=== PATIENT | female | born 1960 | race African-American/Black ===

== ENCOUNTER 2019-01-05 03:17 | Emergency (ER) | payer BC ==
[~2019-01-05] VITALS: Ht 162.6 cm; Wt 64.4 kg
[2019-01-05] MEDS ORDERED: LIDOCAINE HCL 1% 2 ML AMP INJ ONE (03:30)
[2019-01-05] MEDS ORDERED: TETANUS/DIPHTHERIA TOX ADULT 0.5 ML SYR IM ONE (03:30)
[2019-01-05 03:34] LABS: BASOPHILS % 0.3 % (0.0-1.0); EOSINOPHILS # (AUTO) 0.1 (0.0-0.4); EOSINOPHILS % 1.4 % (0.0-6.0); HEMATOCRIT 38.6 % (34.2-44.1); HEMOGLOBIN 12.4 g/dL (12.0-16.0); LYMPHOCYTES # (AUTO) 3.1 (1.0-3.2); LYMPHOCYTES % 47.9 % (18.0-39.1); MEAN CORPUSCULAR HEMOGLOBIN 28.4 pg (28-32); MEAN CORPUSCULAR HGB CONC 32.1 g/dL (31-35); MEAN CORPUSCULAR VOLUME 88.5 fL (81-99); MONOCYTES # (AUTO) 0.5 (0.2-0.8); MONOCYTES % 8.1 % (4.4-11.3); NEUTROPHILS # (AUTO) 2.8 (2.1-6.9); NEUTROPHILS % 42.1 % (38.7-80.0); PLATELET COUNT 203 x10e3/uL (140-360); RED BLOOD COUNT 4.36 x10e6/uL (3.6-5.1); RED CELL DISTRIBUTION WIDTH 12.1 % (11.7-14.4)
[2019-01-05 03:48] LABS: ALANINE AMINOTRANSFERASE 11 IU/L (0-55); ALBUMIN 3.8 g/dL (3.5-5.0); ALBUMIN/GLOBULIN RATIO 1.1 (0.8-2.0); ALKALINE PHOSPHATASE 96 IU/L (40-150); ANION GAP 14.5 mmol/L (8-16); BLOOD UREA NITROGEN 8 mg/dL (7-26); BUN/CREATININE RATIO 10 (6-25); CALCIUM 9.6 mg/dL (8.4-10.2); CARBON DIOXIDE 27 mmol/L (22-29); CHLORIDE 102 mmol/L (98-107); CREATININE, SERUM 0.77 mg/dL (0.57-1.11); EST GLOMERULAR FILTRATION RATE > 60 ML/MIN (60-); GLUCOSE 144 mg/dL (74-118); POTASSIUM 3.5 mmol/L (3.5-5.1); SODIUM 140 mmol/L (136-145)
[2019-01-05] MEDS ORDERED: LIDOCAINE HCL 1% LOCAL INJ 20 ML VIAL ONE (03:51)
[2019-01-05] MEDS ORDERED: LIDOCAINE HCL 1% LOCAL INJ 20 ML VIAL INJ ONE (04:00)
--- NOTE | 2019-01-05 04:02 | Diagnostic Imaging Report ---
EXAMINATION: Head CT without contrast. HISTORY:Status post fall. COMPARISON:None. TECHNIQUE: Multidetector axial images were obtained from the foramen magnum to the vertex without contrast. The images were reconstructed using brain and bone algorithms. Thin section brain images were reformatted into coronal and sagittal planes. Dose modulation, iterative reconstruction, and/or weight based adjustment of the mA/kV was utilized to reduce the radiation dose to as low as reasonably achievable. Intravenous contrast: None IMAGE QUALITY: Acceptable. FINDINGS: Skull/scalp: Mild left frontal scalp soft tissue edema/hematoma with minimal soft tissue emphysema and 3 mm x 4 mm full-thickness soft tissue defect. No radiopaque foreign body. No acute depressed or displaced calvarial fracture. Parenchyma: Nonspecific few, scattered supratentorial white matter hypodensity are likely related to small vessel ischemic changes. No acute hemorrhage, mass or acute major vascular territorial infarct. Arteries: No density suggestive of thrombosis. Dural sinuses: No abnormal density suggestive of thrombosis. Ventricles: No hydrocephalus or displacement. Extra-axial spaces: No abnormal density. Brain volume: Mild generalized cerebral volume loss. Craniocervical junction: No mass, Chiari malformation, or basilar invagination. Sella: Partial empty sella. Paranasal/mastoid sinuses: Imaged portions unremarkable. IMPRESSION: 1. Mild left frontal scalp soft tissue edema/hematoma and focal laceration. No acute calvarial fracture. 2. No acute posttraumatic intracranial abnormality. 3. Mild supratentorial white matter microvascular ischemic changes and mild generalized cerebral volume loss. Signed by: Dr. Isabel Villatoro M.D. on 01/05/2019 3:59 AM
--- NOTE | 2019-01-05 04:07 | Diagnostic Imaging Report ---
History: Status post fall. Comparison studies: None Technique: Axial images were obtained through the cervical region.. Coronal and sagittal images reconstructed from the axial data. Dose modulation, iterative reconstruction, and/or weight based adjustment of the mA/kV was utilized to reduce the radiation dose to as low as reasonably achievable. Intravenous contrast: None Findings: Fractures: None. Soft tissue injuries: None. Atlantoaxial articulation: Intact. Alignment: Normal lordosis. No scoliosis. Cervicomedullary junction: No abnormalities. The foramen magnum is patent. Soft tissues: No abnormalities. Vertebrae: No fractures, infection or neoplasm. Degenerative changes: C2-C3: Posterior disc osteophyte complex without significant canal stenosis. C3-C4: Mild degenerative disc disease. Posterior disc osteophyte complex results in mild canal stenosis. C4-C5: Posterior disc osteophyte complex results in mild canal stenosis. C5-C6: Mild degenerative disc disease. Posterior disc osteophyte complex effaces anterior thecal sac without significant canal stenosis.. IMPRESSION: 1. No acute cervical spine fracture or dislocation. 2. Ligament, spinal cord and or vascular abnormalities cannot be excluded on the basis of this examination. 3. Cervical spondylosis as detailed above. Signed by: Dr. Isabel Villatoro M.D. on 01/05/2019 4:04 AM
--- NOTE | 2019-01-05 04:18 | Diagnostic Imaging Report ---
[facility] - 1 Image HISTORY: Fall COMPARISON: None available. FINDINGS: Overlying artifacts. Bones: Some of the osseous structures are partially obscured by stool and overlying bowel gas. No acute displaced fracture. Joints: Mild degenerative changes of the hips. Soft tissues: The soft tissues appear unremarkable. IMPRESSION: No acute radiographic abnormality. Signed by: Dr. Cecil Rapp D.O., M.M.M. on 01/05/2019 4:15 AM
--- NOTE | 2019-01-05 04:20 | Diagnostic Imaging Report ---
A single frontal view of the chest. HISTORY: Fall, head injury COMPARISON: None available. DISCUSSION: Portable technique, limits sensitivity of the exam. Overlying monitoring leads Tubes/Lines: None Lungs and pleura: Low lung volumes result in bibasilar vascular crowding, accentuation of the pulmonary interstitial markings, central pulmonary vasculature, and the cardiac silhouette. Allowing for these limitations, the findings are as follows: No evidence of a consolidative pneumonia or pulmonary alveolar edema. No definite pleural effusion or pneumothorax is identified. Heart and mediastinum: The cardiomediastinal silhouette appears unremarkable. Bones and soft tissues: Appear unremarkable, given this limited exam. IMPRESSION: No acute radiographic abnormality. Signed by: Dr. Cecil Rapp D.O., M.M.M. on 01/05/2019 4:16 AM
[2019-01-05 05:26] LABS: BILIRUBIN,URINE NEGATIVE (NEGATIVE); CLARITY,URINE CLEAR (CLEAR); COLOR,URINE YELLOW (YELLOW); KETONES,URINE NEGATIVE (NEGATIVE); LEUKOCYTE ESTERASE ,URINE NEGATIVE (NEGATIVE); NITRITE,URINE NEGATIVE (NEGATIVE); PROTEIN,URINE DIPSTICK NEGATIVE (NEGATIVE); URINE UROBILINOGEN 0.2 mg/dL (0.2 - 1)
[2019-01-05 05:46] LABS: BACTERIA,URINE FEW /HPF; EPITHELIAL CELLS,URINE FEW /LPF; WBC,URINE (MAN) 0-5 /HPF (0-5)
[2019-01-05] MEDS ORDERED: NEOSTIGMINE 1 MG/ML 10ML VIAL ONE (06:11)
[2019-01-05] MEDS ORDERED: NEOMYCIN/POLYMYXIN/BACITRACIN 15 GM TUBE TOP ONE (06:15)
[2019-01-05 06:20] VITALS: BP 139/85
== END 2019-01-05 06:41 | disposition home or self-care (01) ==
LOC: ER 03:17
DX: S01.81XA Laceration without foreign body of other part of head, initial encounter (principal); R51 Headache; W10.8XXA Fall (on) (from) other stairs and steps, initial encounter; Y93.01 Activity, walking, marching and hiking; Y92.008 Other place in unspecified non-institutional (private) residence as the place of occurrence of the external cause; M47.892 Other spondylosis, cervical region; E11.9 Type 2 diabetes mellitus without complications
CPT/HCPCS: 12014; 36415; 70450; 71045; 72125; 72170; 80053; 81001; 82948; 85025; 90471; 90714; 99284; J2001; J2710

== ENCOUNTER 2019-08-27 21:30 | Emergency (ER) | payer BC ==
[~2019-08-27] VITALS: Ht 162.6 cm; Wt 64.4 kg
[2019-08-27] MEDS ORDERED: SODIUM CHLORIDE 0.9% 500ML 500 ML ONE ×2 (21:43→21:45)
[2019-08-27] MEDS ORDERED: SODIUM CHLORIDE 0.9% 1000ML 1,000 ML IV ONE (21:45)
[2019-08-27 21:56] LABS: BASOPHILS % 0.1 % (0.0-1.0); EOSINOPHILS % 0.4 % (0.0-6.0); HEMATOCRIT 43.8 % (34.2-44.1); LYMPHOCYTES % 14.5 % (18.0-39.1); MEAN CORPUSCULAR HEMOGLOBIN 29.6 pg (28-32); MEAN CORPUSCULAR HGB CONC 34.2 g/dL (31-35); MEAN CORPUSCULAR VOLUME 86.6 fL (81-99); MONOCYTES # (AUTO) 0.4 (0.2-0.8); MONOCYTES % 5.1 % (4.4-11.3); NEUTROPHILS # (AUTO) 5.6 (2.1-6.9); NEUTROPHILS % 79.3 % (38.7-80.0); PLATELET COUNT 298 x10e3/uL (140-360); RED BLOOD COUNT 5.06 x10e6/uL (3.6-5.1); RED CELL DISTRIBUTION WIDTH 12.1 % (11.7-14.4)
[2019-08-27 22:09] LABS: ALBUMIN 4.6 g/dL (3.5-5.0); ALBUMIN/GLOBULIN RATIO 1.2 (0.8-2.0); ANION GAP 32.5 mmol/L (8-16); CALCIUM 9.9 mg/dL (8.4-10.2); CREATININE, SERUM 1.46 mg/dL (0.57-1.11); POTASSIUM 4.5 mmol/L (3.5-5.1)
[2019-08-27 22:15] LABS: CREATINE KINASE MB 16.8 ng/mL (0-5.0)
--- NOTE | 2019-08-27 22:19 | Diagnostic Imaging Report ---
EXAMINATION: Head CT HISTORY: Altered mental status, weakness COMPARISON: Head CT 01/05/2019 TECHNIQUE: Helical axial images of the head were obtained. Reformatted coronal and sagittal images from the axial data. Dose modulation, iterative reconstruction, and/or weight based adjustment of the mA/kV was utilized to reduce the radiation dose to as low as reasonably achievable. Image quality: Motion/streaking artifact limits the evaluation of the skull base and posterior cranial fossa. FINDINGS: Parenchyma: 1. Persistent mild white matter chronic microvascular ischemic changes. Physiologic calcification of the globi pallidi. 2. No mass or hemorrhage. No CT evidence of acute territorial vascular insult. Extra-axial spaces:No abnormal density. No extra-axial fluid collections Brain volume: Normal for age. Ventricles: No hydrocephalus or displacement. Arteries: No density suggestive of thrombus. Dural sinuses: No abnormal density. Foramen magnum: No mass, Chiari malformation, or basilar invagination. Sella: Enlarged, partially empty, mostly CSF filled. Paranasal/mastoid sinuses: Imaged portions unremarkable. Skull/Scalp: No lytic or blastic lesions. No fractures. IMPRESSION: 1. No acute intracranial abnormalities. 2. Mild chronic microvascular ischemic changes, stable compared to head CT of 01/05/2019 Signed by: Dr. Yanni Mccarthy M.D. on 08/27/2019 10:16 PM
[2019-08-27] MEDS ORDERED: DEXTROSE 5%/0.45% SOD CHL 1,000 ML IV SCH (23:10)
[2019-08-27] MEDS ORDERED: INSULIN REGULAR, HUMAN 3ML VL 1 UNIT in SODIUM CHLORIDE 0.9% 100 ML IV SCH ×2 (23:15)
[2019-08-27] MEDS ORDERED: POTASSIUM CHLORIDE 20MEQ/100ML 200 ML IV PRN (23:15)
[2019-08-27] MEDS ORDERED: MAGNESIUM SULF 1GRAM/DEXTROSE 100 ML IV PRN (23:15)
[2019-08-27] MEDS ORDERED: SODIUM CHLORIDE 0.9% 100 ML ONE (23:22)
[2019-08-27] MEDS ORDERED: INSULIN REGULAR, HUMAN 100 UNIT/1 ML 3ML VIAL ONE (23:22)
[2019-08-27] MEDS: SODIUM CHLORIDE 0.9% 1000ML 1,000 ML IV SCH (23:32)
--- NOTE | 2019-08-27 23:52 | Diagnostic Imaging Report ---
EXAMINATION: CHEST SINGLE (PORTABLE) INDICATION: Altered mental status COMPARISON: Chest x-ray 01/05/2019 FINDINGS: TUBES and LINES: None. LUNGS: Normal lung volumes. Lungs are clear. There is perihilar interstitial opacities, consistent with interstitial edema. PLEURA: No pleural effusion or pneumothorax. HEART AND MEDIASTINUM: Cardiac size is mildly enlarged. BONES AND SOFT TISSUES: No acute osseous lesion. Soft tissues are unremarkable. UPPER ABDOMEN: No free air under the diaphragm. IMPRESSION: Borderline cardiomegaly and pulmonary vascular congestion. Signed by: Kenan Medina DO on 08/27/2019 11:50 PM
[2019-08-28] MEDS: SODIUM CHLORIDE 0.9% 1000ML 1,000 ML IV SCH (04:19)
[2019-08-28 04:39] LABS: ANION GAP 11.4 mmol/L (8-16); BLOOD UREA NITROGEN 13 mg/dL (7-26); BUN/CREATININE RATIO 14 (6-25); CARBON DIOXIDE 22 mmol/L (22-29); CHLORIDE 105 mmol/L (98-107); CREATININE, SERUM 0.92 mg/dL (0.57-1.11); EST GLOMERULAR FILTRATION RATE > 60 ML/MIN (60-); GLUCOSE 123 mg/dL (74-118); MAGNESIUM 1.6 MG/DL (1.3-2.1); POTASSIUM 3.4 mmol/L (3.5-5.1); SODIUM 135 mmol/L (136-145)
== END 2019-08-28 06:20 | disposition home or self-care (01) ==
LOC: ER 21:30
DX: R41.82 Altered mental status, unspecified (principal); R53.1 Weakness; E86.0 Dehydration; E10.10 Type 1 diabetes mellitus with ketoacidosis without coma
CPT/HCPCS: 36415; 70450; 71045; 80048; 80053; 82550; 82553; 82948; 83735; 84484; 85025; 93005; 96365; 99284; J1817; J7030; J7040; J7050

== ENCOUNTER 2019-09-26 13:02 | Inpatient (IN) | payer BC ==
[~2019-09-26] VITALS: Ht 162.6 cm; Wt 58.5 kg
[2019-09-26] VITALS (10 sets, daily range): BP systolic 70–162; BP diastolic 54–88
[2019-09-26] MEDS ORDERED: ASPIRIN 81 MG CHEW TAB PO ONE ×2 (14:00→21:45)
[2019-09-26 14:42] LABS: AMPHETAMINES SCREEN,URINE NEGATIVE (NEGATIVE); BENZODIAZEPINES SCREEN,URINE NEGATIVE (NEGATIVE); PHENCYCLIDINE SCREEN,URINE NEGATIVE (NEGATIVE)
[2019-09-26 15:05] LABS: BASOPHILS % 0.2 % (0.0-1.0); EOSINOPHILS # (AUTO) 0.1 (0.0-0.4); EOSINOPHILS % 1.1 % (0.0-6.0); HEMATOCRIT 40.4 % (34.2-44.1); LYMPHOCYTES # (AUTO) 1.8 (1.0-3.2); LYMPHOCYTES % 40.6 % (18.0-39.1); MEAN CORPUSCULAR HEMOGLOBIN 30.3 pg (28-32); MEAN CORPUSCULAR HGB CONC 32.2 g/dL (31-35); MEAN CORPUSCULAR VOLUME 94.2 fL (81-99); MONOCYTES # (AUTO) 0.4 (0.2-0.8); MONOCYTES % 9.5 % (4.4-11.3); NEUTROPHILS # (AUTO) 2.1 (2.1-6.9); NEUTROPHILS % 48.4 % (38.7-80.0); PLATELET COUNT 284 x10e3/uL (140-360); RED BLOOD COUNT 4.29 x10e6/uL (3.6-5.1); RED CELL DISTRIBUTION WIDTH 12.8 % (11.7-14.4)
[2019-09-26 15:24] LABS: ALANINE AMINOTRANSFERASE 11 IU/L (0-55); ALBUMIN 3.9 g/dL (3.5-5.0); ALBUMIN/GLOBULIN RATIO 1.3 (0.8-2.0); ALKALINE PHOSPHATASE 70 IU/L (40-150); ANION GAP 12.9 mmol/L (8-16); BLOOD UREA NITROGEN 8 mg/dL (7-26); BUN/CREATININE RATIO 10 (6-25); CALCIUM 9.1 mg/dL (8.4-10.2); CARBON DIOXIDE 28 mmol/L (22-29); CHLORIDE 103 mmol/L (98-107); CREATINE KINASE 34 IU/L (29-168); CREATININE, SERUM 0.79 mg/dL (0.57-1.11); EST GLOMERULAR FILTRATION RATE > 60 ML/MIN (60-); GLUCOSE 185 mg/dL (74-118); POTASSIUM 3.9 mmol/L (3.5-5.1); SODIUM 140 mmol/L (136-145)
[2019-09-26 15:29] LABS: SALICYLATE < 5.0 mg/dL (0-30)
[2019-09-26] MEDS ORDERED: DEXTROSE 50% SYRINGE 50 ML IV PRN (15:45)
[2019-09-26] MEDS ORDERED: GLIMEPIRIDE2 MG PO (16:20)
[2019-09-26] MEDS ORDERED: LANTUS 3ML100 UNITS/ (16:20)
[2019-09-26] MEDS ORDERED: METHOCARBAMOL750 MG PO (16:20)
--- NOTE | 2019-09-26 16:25 | NUR ---
patient arrived to room 295. does seem slightly confused but easily reoriented. visual field is impairment and mobilizing patient from bed did require many ques. med rec completed and updated from patient's pharmacy, [facility]. Bed alarm on, call light within reach. Dr. Gustafson paged for any further orders needed for admission and to continue home meds. [facility].
[2019-09-26] MEDS ORDERED: INSULIN REGULAR, HUMAN 100 UNIT/1 ML 3ML VIAL SQ SCH (16:30)
--- NOTE | 2019-09-26 17:23 | NUR ---
Consult for Dr. Rutherford received from Dr. Gustafson. Dr. Rutherford unavailable until 10/10/19. Consult switched to Dr. Anderson and voicemail left on office line.
--- NOTE | 2019-09-26 19:26 | NUR ---
SPOKE WITH MD MENESES AND HE STATED HE IS UNAVAILABLE FOR CONSULTS AT THIS TIME. WILL INFORM MD LOBO.
--- NOTE | 2019-09-26 20:45 | NUR ---
TELE CALLED, PATIENT IN SVT, HR 165, ELEVATED BP. SPOKE WITH MD LOBO. NEW ORDERS RECEIVED. NEW CONSULT FOR MD ASCENCIO.
[2019-09-26] MEDS ORDERED: DILTIAZEM HCL 5 MG/ML 5 ML VIAL IV STA (20:46)
--- NOTE | 2019-09-26 20:50 | NUR ---
SPOKE WITH MD Tarun LEONG, COVERING FOR MD ASCENCIO NEW ORDERS RECEIVED. WILL SEE PATIENT.
--- NOTE | 2019-09-26 20:54 | NUR ---
WENT TO PATIENT ROOM TO ASSESS BP. NOTED PATIENT APPEARED TO BE SEIZING, NO LONGER TALKING, DIFFICULTY BREATHING. CUSTOMER RECORDS DIVISION SUPERVISOR CALLED. ED MD LISA AND CUSTOMER RECORDS DIVISION SUPERVISOR TEAM ARRIVED. O2@4L GIVEN VIA NC, PATIENT SPO2 AT 100%. HR AND BP ELEVATED. MEDS GIVEN PER MD INSTRUCTIONS. PATIENT STAYED BREATHING EASILY WITH STEADY HR THROUGHOUT. ORDERS CARRIED OUT PER MD LISA INSTRUCTIONS. MD LISA SPOKE WITH MD LOBO DURING CUSTOMER RECORDS DIVISION SUPERVISOR. VITALS STABLE AT COMPLETION OF CUSTOMER RECORDS DIVISION SUPERVISOR, TRANSFERRED TO GET STAT HEAD CT, THEN TO IMCU AND WAITING TRANSFER DOWNTOWN FOR NEURO ICU BED. CUSTOMER RECORDS DIVISION SUPERVISOR PAPERWORK IN CHART.
[2019-09-26] MEDS ORDERED: INSULIN GLARGINE 100 UNITS/ML VIAL SQ SCH (21:00)
[2019-09-26] MEDS ORDERED: LORAZEPAM INJ 2 MG/ML VIAL ONE ×3 (21:02→21:13)
[2019-09-26] MEDS ORDERED: FOSPHENYTOIN 1,000 MG in SODIUM CHLORIDE 0.9% 50ML 50 ML IV ONE (21:15)
[2019-09-26 21:34] LABS: ANION GAP 20.4 mmol/L (8-16); BLOOD UREA NITROGEN 9 mg/dL (7-26); BUN/CREATININE RATIO 11 (6-25); CALCIUM 8.9 mg/dL (8.4-10.2); CARBON DIOXIDE 21 mmol/L (22-29); CHLORIDE 105 mmol/L (98-107); CREATININE, SERUM 0.83 mg/dL (0.57-1.11); EST GLOMERULAR FILTRATION RATE > 60 ML/MIN (60-); GLUCOSE 353 mg/dL (74-118); POTASSIUM 3.4 mmol/L (3.5-5.1); SODIUM 143 mmol/L (136-145)
[2019-09-26] MEDS ORDERED: LORAZEPAM INJ 2 MG/ML VIAL IV ONE (21:45)
[2019-09-26] MEDS ORDERED: LORAZEPAM INJ 2 MG/ML VIAL IV PRN (21:45)
--- NOTE | 2019-09-26 21:45 | NUR ---
Received to 187 from [facility] after rapid response for seizures. Placed on EKG, pulse ox & NBP for monitoring. IV bolus started shortly after arrival.
[2019-09-26] MEDS ORDERED: SODIUM CHLORIDE 0.9% 1000ML 1,000 ML ONE (21:52)
[2019-09-26 21:55] LABS: BASOPHILS % 0.6 % (0.0-1.0); CREATINE KINASE 32 IU/L (29-168); EOSINOPHILS # (AUTO) 0.1 (0.0-0.4); EOSINOPHILS % 1.1 % (0.0-6.0); HEMATOCRIT 40.4 % (34.2-44.1); HEMOGLOBIN 12.8 g/dL (12.0-16.0); LYMPHOCYTES % 46.2 % (18.0-39.1); MEAN CORPUSCULAR HEMOGLOBIN 30.1 pg (28-32); MEAN CORPUSCULAR HGB CONC 31.7 g/dL (31-35); MEAN CORPUSCULAR VOLUME 95.1 fL (81-99); MONOCYTES # (AUTO) 0.6 (0.2-0.8); MONOCYTES % 9.6 % (4.4-11.3); NEUTROPHILS # (AUTO) 2.7 (2.1-6.9); NEUTROPHILS % 42.2 % (38.7-80.0); PLATELET COUNT 350 x10e3/uL (140-360); RED BLOOD COUNT 4.25 x10e6/uL (3.6-5.1); RED CELL DISTRIBUTION WIDTH 12.8 % (11.7-14.4)
--- NOTE | 2019-09-26 21:55 | Diagnostic Imaging Report ---
EXAMINATION: Head CT without contrast. HISTORY:Altered mental status, seizure. COMPARISON:CT brain from 08/27/2019. TECHNIQUE: Multidetector axial images were obtained from the foramen magnum to the vertex without contrast. The images were reconstructed using brain and bone algorithms. Thin section brain images were reformatted into coronal and sagittal planes. Dose modulation, iterative reconstruction, and/or weight based adjustment of the mA/kV was utilized to reduce the radiation dose to as low as reasonably achievable. Intravenous contrast: None IMAGE QUALITY: Acceptable. FINDINGS: Skull/scalp: No lytic or blastic. lesions. No surgical changes. Parenchyma: Nonspecific bilateral frontoparietal patchy white matter hypodensity are likely related to small vessel ischemic changes. No acute hemorrhage, mass or acute major vascular territorial infarct. Arteries: No density suggestive of thrombosis. Dural sinuses: No abnormal density suggestive of thrombosis. Ventricles: Mild compensated dilatation due to volume loss. No hydrocephalus. Extra-axial spaces: No abnormal density. Brain volume: Mild generalized cerebral volume loss. Craniocervical junction: No mass, Chiari malformation, or basilar invagination. Sella: Enlarged, mostly CSF filled, partial empty sella. Paranasal/mastoid sinuses: Imaged portions unremarkable. IMPRESSION: No acute intracranial abnormality. No change since CT brain from 08/27/2019. Chronic findings: 1. Mild supratentorial white matter microvascular ischemic changes. 2. Mild generalized cerebral volume loss. Signed by: Dr. Isabel Villatoro M.D. on 09/26/2019 9:52 PM
[2019-09-26 22:11] LABS: ALANINE AMINOTRANSFERASE 12 IU/L (0-55); ALBUMIN 3.6 g/dL (3.5-5.0); ALBUMIN/GLOBULIN RATIO 1.2 (0.8-2.0); ALKALINE PHOSPHATASE 69 IU/L (40-150)
[2019-09-26 22:12] LABS: INR 0.92; PROTHROMBIN TIME 12.9 seconds (11.9-14.5)
[2019-09-26 22:13] LABS: PARTIAL THROMBOPLASTIN TIME 25.3 seconds (23.8-35.5)
[2019-09-26 22:21] LABS: CHOL/HDL RATIO 2.3 (3.0-3.6)
--- NOTE | 2019-09-26 22:45 | NUR ---
Report called to Neville at [facility].
--- NOTE | 2019-09-26 22:53 | NUR ---
At 2120 INITIATED TRANSFER AND CONTACTED [facility]. SPOKE TO TRACIE SIMMSSEO COORDINATORBLOW MOLDING MACHINE TENDER. AT 2150 SPOKE TO TRACIE WITH [facility] BLOW MOLDING MACHINE TENDER AND PATIENT WAS ACCEPTED BY DR Sumanth TABOR. PATIENT REPORT TO BE CALLED TO [phone]. PM IMCU NURSE MADE AWARE. SPOKE TO MS TRE XAVIER/CNO/AOC AT 2235 AND APPROVAL FOR TRANSFER GIVEN. MD LOBO UPDATED CONCERNING TRANSFER AT 2252. NO DOC TO DOC NEEDED PER VIKKI WITH [facility] TRANSFER [facility]. PM IMCU NURSE MADE AWARE OF ALL OF THE ABOVE.
[2019-09-26] MEDS ORDERED: METFORMIN HCL500 MG PO (23:17)
--- NOTE | 2019-09-26 23:36 | NUR ---
Transferred to [facility] per EMS.
--- NOTE | 2019-09-26 23:38 | NUR ---
Belongings with patient.
--- NOTE | 2019-09-27 06:05 | Discharge Summary ---
DISCHARGE DISPOSITION: The patient was transferred downtown for higher level of care. DISCHARGE DIAGNOSES: 1. New onset seizure. 2. Supraventricular tachycardia. 3. Hypertension. 4. Encephalopathy. 5. Diabetes, noncompliant for controlled. HISTORY OF PRESENT ILLNESS AND HOSPITAL COURSE: The patient was admitted for new onset encephalopathy where up on the floor, the patient started to have an evidence of hypertensive urgency with some SVT with heart rates were in the 160s and shortly thereafter Cardizem bolus. The patient then started having new onset seizures, which was unusual for the patient, so she was given 4 mg of Ativan and some IV fosphenytoin, which helped get rid of the seizure, but unfortunately, we do not have Neurology consultants here. We were willing to see the patient as well as we do not have a functional EEG per one of the neurologists. So, therefore, the patient needed to be transferred downtown for higher level of care for Neurology for possible lumbar tap, EEG monitoring, so she was then transferred downtown. Please see hospital chart for full details. MD CHANELL Watson/KATIE /[id number]
--- NOTE | 2019-09-27 06:15 | History and Physical ---
REASON FOR ADMISSION: Encephalopathy. HISTORY OF PRESENT ILLNESS: The patient is a noncompliant poor diabetic, who did a teleconferencing on 09/23/2019 due to having headache, mostly a temporal lobe, right-sided with some slight vision changes. The patient was called in some medicine for possible muscular headache and I told her to see her manager council, which she did later that afternoon who stated that her eyes even though, given that her vision has deteriorated since the last visit, there was no focal abnormality noted and stated that she should have an MRI, so an MRI was performed that afternoon stat that did not show any acute pathology. When I checked on the patient the following day, she stated that she was doing a little bit better with her headache, but then on Thursday, the day of admission, 09/26/2019, in speaking with the daughter, the patient unfortunately in the last day had started becoming confused, having visual hallucinations, even tried to use the restroom outside which at that point, I told her to go ahead and take her to the emergency room for further evaluation. So, she was seen in the emergency room, where her labs, she was unremarkable. So, she was being admitted for further evaluation and treatment. The patient denies any fevers. No travel out of the country. PAST MEDICAL HISTORY: Diabetes, hypertension. MEDICATIONS: See MAR. ALLERGIES: SEE MAR. SOCIAL HISTORY: Lives at home with the family. 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 Nonsmoker, nondrinker. FAMILY HISTORY: Diabetes. PHYSICAL EXAMINATION: VITAL SIGNS: 98.6, blood pressure 146/70, pulse is 80, and O2 sats 98%. GENERAL: She is confused. NECK: Supple. No rigidity. CARDIOVASCULAR: Regular rate and rhythm. LUNGS: Clear to auscultation bilaterally. ABDOMEN: Good bowel sounds. Soft, nontender. EXTREMITIES: No clubbing or cyanosis. NEUROLOGIC: She moves all extremities x4 but she was confused. ASSESSMENT/PLAN: 1. Encephalopathy. We will go ahead and admit the patient, get Neurology evaluation. Unsure of the etiology. 2. Diabetes. We will continue with current care and monitoring with fingersticks, use a sliding scale as necessary. 3. Hypertension. We will continue to monitor. Please see hospital chart for full details. MD CHANELL Watson/KATIE /[id number]
[2019-09-27] MEDS ORDERED: GLIMEPIRIDE 2 MG TAB PO SCH (07:30)
[2019-09-27] MEDS ORDERED: NON-FORMULARY MEDICATION (Insulin Glargine (Lantus 3ML Pen) 20 UNITS) SCH (09:00)
== END 2019-09-26 23:30 | disposition short-term general hospital (02) | DRG 71 ==
LOC: ER 13:02 → ERHOLD 14:00 → MED/SURG3 16:05 → IMCU 21:43
PROVIDERS: ADMIT Internal Medicine; ATTEND Internal Medicine
DX: G93.41 Metabolic encephalopathy (principal); I47.1 Supraventricular tachycardia; R56.9 Unspecified convulsions; I16.0 Hypertensive urgency; E11.9 Type 2 diabetes mellitus without complications; G44.89 Other headache syndrome; Z91.19 Patient's noncompliance with other medical treatment and regimen
CPT/HCPCS: 36415; 70450; 80048; 80053; 80061; 80307; 80329; 82140; 82550; 82553; 82948; 83036; 83735; 84100; 84484; 85025; 85610; 85730; 93041; 99284; J2060; J7030; Q2009

== ENCOUNTER 2019-11-18 14:55 | Outpatient (RCR) | payer BC ==
[~2019-11-18 14:55] MED LIST: GLIMEPIRIDE2 MG PO; LANTUS 3ML100 UNITS/; METFORMIN HCL500 MG PO; METHOCARBAMOL750 MG PO
== END 2019-11-20 ==
LOC: PT 14:55
PROVIDERS: ATTEND Physical Medicine & Rehabilitation
DX: R54 Age-related physical debility (principal); M62.81 Muscle weakness (generalized); R26.81 Unsteadiness on feet; Z91.81 History of falling

== ENCOUNTER 2019-12-19 17:00 | Outpatient (RCR) | payer BC | END 2019-12-20 | LOC: PT 17:00 | PROVIDERS: ATTEND Physical Medicine & Rehabilitation | DX: R54 Age-related physical debility (principal); M62.81 Muscle weakness (generalized); R26.9 Unspecified abnormalities of gait and mobility; R26.81 Unsteadiness on feet; Z91.81 History of falling ==

== ENCOUNTER 2019-12-26 17:15 | Outpatient (RCR) | payer BC | END 2020-01-20 | LOC: PT 17:15 | PROVIDERS: ATTEND Physical Medicine & Rehabilitation | DX: R54 Age-related physical debility (principal); M62.81 Muscle weakness (generalized); R26.9 Unspecified abnormalities of gait and mobility; R26.81 Unsteadiness on feet; Z91.81 History of falling | CPT/HCPCS: 97139 ==